=== PATIENT | female | born 1955 | race Caucasian/White ===

== ENCOUNTER → 2016-12-27 | Outpatient (CLI) | payer MEDICARE, OTHER | END | disposition home or self-care (01) | LOC: CFH 13:00 | PROVIDERS: ATTEND Family Medicine | DX: M51.36 Other intervertebral disc degeneration, lumbar region (principal); M51.26 Other intervertebral disc displacement, lumbar region; M47.896 Other spondylosis, lumbar region; M48.06 Spinal stenosis, lumbar region; M40.46 Postural lordosis, lumbar region; Z98.1 Arthrodesis status; Z98.890 Other specified postprocedural states | CPT/HCPCS: 72110; 72148 ==

== ENCOUNTER → 2018-01-10 | Outpatient (CLI) | payer MEDICARE, OTHER | END | disposition home or self-care (01) | LOC: CVU 09:57 | PROVIDERS: ATTEND Internal Medicine Cardiovascular Disease | DX: R00.2 Palpitations (principal); R06.00 Dyspnea, unspecified | CPT/HCPCS: 93017; 93306 ==

== ENCOUNTER 2019-01-27 05:32 | Day surgery (SDC) | payer MEDICARE, OTHER ==
[~2019-01-27] VITALS: Ht 167.6 cm; Wt 63.8 kg
[2019-01-27] MEDS ORDERED: BUPIVACAINE/PF 0.25% ONE (06:13)
[2019-01-27 06:14] VITALS: BP 124/82
[2019-01-27 06:24] VITALS: BP 124/82
[2019-01-27] MEDS ORDERED: HYDR-3245 PO (06:37)
[2019-01-27] MEDS ORDERED: ESTR1TAB4 PO (06:37)
[2019-01-27] MEDS ORDERED: GABA300C10 PO (06:37)
[2019-01-27] MEDS ORDERED: LACTATED RINGERS 1,000 ML IV SCH (06:53)
[2019-01-27] MEDS ORDERED: ACETAMINOPHEN 500 MG TABLET ONE (07:16)
[2019-01-27] MEDS ORDERED: GABAPENTIN 300 MG CAPSULE ONE (07:16)
[2019-01-27] MEDS ORDERED: FENTANYL PF 250 MCG/5ML ONE (07:27)
[2019-01-27] MEDS ORDERED: MIDAZOLAM 1 MG/ML, 2ML ONE (07:27)
[2019-01-27] MEDS ORDERED: LABETALOL 5MG/ML, 20ML IV PRN (07:30)
[2019-01-27] MEDS ORDERED: KETOROLAC 30 MG/1 ML ONE (07:30)
[2019-01-27] MEDS ORDERED: hydrALAzine 20 MG/ML, 1ML IV PRN (07:30)
[2019-01-27] MEDS ORDERED: MEPERIDINE/PF 25MG/ML,1ML IVPush PRN (07:30)
[2019-01-27] MEDS ORDERED: HYDROmorphone 2 MG/ML, 1ML IVPush PRN (07:30)
[2019-01-27] MEDS ORDERED: PROMETHAZINE 25 MG/ML, 1ML IV PRN (07:30)
[2019-01-27] MEDS ORDERED: ACETAMINOPHEN 500 MG TABLET PO ONE (07:30)
[2019-01-27] MEDS ORDERED: HALOPERIDOL 5 MG/ML IV PRN (07:30)
[2019-01-27] MEDS ORDERED: GABAPENTIN 300 MG CAPSULE PO ONE (07:30)
[2019-01-27] MEDS ORDERED: OXYcodone 5 MG/5 ML ORAL.SOL UDC ONE (08:59)
[2019-01-27] MEDS ORDERED: FENTANYL PF 100 MCG/2ML ONE ×2 (08:59→09:24)
[2019-01-27] MEDS: OXYcodone 5 MG/5 ML ORAL.SOL UDC PO PRN ×2 (09:01→10:00)
[2019-01-27] MEDS: FENTANYL PF 100 MCG/2ML IV PRN ×5 (09:01→09:21)
[2019-01-27] MEDS ORDERED: SUCCINYLCHOLINE 20 MG/ML, 10ML ONE (09:07)
[2019-01-27] MEDS ORDERED: ROCURONIUM 10MG/ML,5ML ONE (09:07)
[2019-01-27] MEDS ORDERED: ONDANSETRON 2MG/ML, 2ML ONE (09:07)
[2019-01-27] MEDS ORDERED: PROPOFOL 10 MG/ML, 20ML ONE (09:07)
[2019-01-27] MEDS ORDERED: GLYCOPYRROLATE 0.2MG/1ML, 5ML ONE (09:07)
[2019-01-27] MEDS ORDERED: CEFAZOLIN 1,000 MG ONE (09:07)
[2019-01-27] MEDS ORDERED: NEOSTIGMINE 1 MG/ML, 10ML ONE (09:07)
[2019-01-27] MEDS ORDERED: DEXAMETHASONE 4 MG/ML, 1ML ONE (09:07)
== END 2019-01-27 11:05 | disposition home or self-care (01) ==
LOC: OUT 05:32
PROVIDERS: ATTEND Obstetrics & Gynecology Female Pelvic Medicine and Reconstructive Surgery
DX: D25.1 Intramural leiomyoma of uterus (principal); N72 Inflammatory disease of cervix uteri; N84.0 Polyp of corpus uteri; N88.8 Other specified noninflammatory disorders of cervix uteri; G47.33 Obstructive sleep apnea (adult) (pediatric); G89.29 Other chronic pain; C91.10 Chronic lymphocytic leukemia of B-cell type not having achieved remission; F17.200 Nicotine dependence, unspecified, uncomplicated; Z72.89 Other problems related to lifestyle; Z79.891 Long term (current) use of opiate analgesic; Z79.899 Other long term (current) drug therapy; Z90.722 Acquired absence of ovaries, bilateral; Z98.890 Other specified postprocedural states
CPT/HCPCS: 58552; 88307; 93005; J0330; J0690; J1100; J1885; J2250; J2405; J2704; J2710; J3010; J3490; J7120

== ENCOUNTER → 2019-06-19 | Outpatient (CLI) | payer MEDICARE, OTHER ==
[~2019-06-19] MED LIST: ESTR1TAB4 PO; GABA300C10 PO; HYDR-3245 PO
== END | disposition home or self-care (01) ==
LOC: CFH 08:35
PROVIDERS: ATTEND Obstetrics & Gynecology Female Pelvic Medicine and Reconstructive Surgery
DX: Z12.31 Encounter for screening mammogram for malignant neoplasm of breast (principal); N64.89 Other specified disorders of breast
CPT/HCPCS: 77063; 77067

== ENCOUNTER → 2020-07-26 | Outpatient (CLI) | payer MEDICARE, OTHER ==
[~2020-07-26] MED LIST changes: -HYDR-3245 PO; +HYDR1TAB53 PO
== END | disposition home or self-care (01) ==
LOC: CFH 11:55
PROVIDERS: ATTEND Obstetrics & Gynecology Female Pelvic Medicine and Reconstructive Surgery
DX: N63.23 Unspecified lump in the left breast, lower outer quadrant (principal); N60.02 Solitary cyst of left breast; N64.4 Mastodynia; N64.52 Nipple discharge
CPT/HCPCS: 76642; 77062; 77066; G0279